=== PATIENT | male | born 1995 | race American Indian/Alaskan Native ===

== ENCOUNTER 2020-06-02 12:50 | Emergency (ER) | payer SELFPAY ==
[2020-06-02 14:32] LABS: Basophils # (Auto) 0.1 K/mm3 (0.0-0.1); Basophils % (Auto) 0.4 % (0.0-1.8); Hematocrit 46.5 % (35.5-45.6); Hemoglobin 15.7 gm/dl (11.8-15.2); Lymphocytes # (Auto) 1.4 K/mm3 (1.2-5.4); Lymphocytes % (Auto) 7.1 % (13.4-35.0); Mean Corpuscular HGB Conc 34 % (32-34); Mean Corpuscular Volume 92 fl (84-94); Monocytes # (Auto) 1.4 K/mm3 (0.0-0.8); Monocytes % (Auto) 7.2 % (0.0-7.3); Platelet Count 295 K/mm3 (140-440); Red Blood Count 5.05 M/mm3 (3.65-5.03); Red Cell Distribution Width 14.5 % (13.2-15.2)
[2020-06-02] MEDS ORDERED: SODIUM CHLORIDE 0.9% 500 ML 500 ML IV ONE (14:44)
[2020-06-02 14:51] LABS: BUN/Creatinine Ratio 8; Blood Urea Nitrogen 8 mg/dL (9-20); Calcium 10.2 mg/dL (8.4-10.2); Hemolysis Index 3
--- NOTE | 2020-06-02 15:37 | XRay Report ---
CHEST 2 VIEWS INDICATION / CLINICAL INFORMATION: Possible sepsis. COMPARISON: None available. FINDINGS: SUPPORT DEVICES: None. HEART / MEDIASTINUM: The heart size and pulmonary vasculature are normal. LUNGS / PLEURA: No significant pulmonary or pleural abnormality. No pneumothorax. ADDITIONAL FINDINGS: No acute osseous abnormality is seen. IMPRESSION: No acute findings. There is no evidence of pneumonia. Signer Name: Spencer Martinez MD Signed: 06/02/2020 3:33 PM Workstation Name: [id number]
[2020-06-02 15:39] LABS: INR 1.02 (0.87-1.13)
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
[2020-06-02] MEDS ORDERED: ZIPRASIDONE MESYLATE 20 MG VIAL IM ONE (16:51)
[2020-06-02 16:57] LABS: Bilirubin,Direct 0.4 mg/dL (0-0.2)
[2020-06-02 17:23] LABS: Amphetamine Screen,Urine PRESUMPTIVE POSITIVE; Benzodiazepines Screen,Urine PRESUMPTIVE NEGATIVE; Cannabinoid Screen,Urine PRESUMPTIVE POSITIVE; Cocaine Screen,Urine PRESUMPTIVE POSITIVE; Methadone Screen,Urine PRESUMPTIVE NEGATIVE; Opiate Screen,Urine PRESUMPTIVE NEGATIVE
[2020-06-02 17:36] LABS: Bilirubin,Urine NEG (Negative); Blood,Urine NEG (Negative); Color,Urine Amber (Yellow); Mucus,Urine 2+ /HPF; WBC,Urine < 1.0 /HPF (0.0-6.0)
[2020-06-02] MEDS ORDERED: SODIUM CHLORIDE 0.9% 1000 ML 2,000 ML IV ONE (17:43)
[2020-06-02 17:58] LABS: Bilirubin,Urine NEG (Negative); Blood,Urine NEG (Negative); Color,Urine Amber (Yellow); Mucus,Urine 2+ /HPF
[2020-06-02] MEDS ORDERED: SODIUM CHLORIDE 0.9% 1000 ML 1,000 ML IV ONE ×3 (18:58→18:59)
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
[2020-06-03] MEDS ORDERED: SODIUM CHLORIDE 0.9% 1000 ML 1,000 ML IV ONE ×2 (12:52)
[2020-06-03] MEDS ORDERED: ACETAMINOPHEN 500 MG TAB ONE (15:31)
[2020-06-03] MEDS ORDERED: ACETAMINOPHEN 500 MG TAB PO ONE (15:33)
--- NOTE | 2020-06-04 11:29 | Progress Note ---
Subjective - Reason for Consult Consult date: 06/04/20 Reason for consult: psychosis - Chief Complaint Chief complaint: During my interview with the patient he is a/o x 3. His behavior is odd. He is walking hunched over and shakes as he starts sitting down. He is laughing and smiling inappropriately. When asked how he was feeling he says, "supertastic and all." He says "I like to make up my words." He says "that means I feel wonderful." The patient denies SI/HI, stating "I don't want to do that." He then laughs out loud. When asked about hallucinations, the patient begins to laugh. REVIEW OF SYSTEMS Constitutional: Negative for weight loss ENT: Negative for stridor Respiratory: Negative for cough or hemoptysis All other systems reviewed and are negative MENTAL STATUS EXAMINATION General Appearance and Behavior: Age appropriate, fair hygiene, wearing appropriate clothes, lying in bed, poor eye contact, odd, smiles inappropriately Cooperation: Participating Psychomotor Behavior: unremarkable and within normal limits Mood: "supertastic, wonderful" Affect and affective range: smiles and laughs inappropriately Thought Process: Illogical Thought Content: possible hallucinations Speech: Normal volume, Regular rate and rhythm, Intellectual Functioning: Average Suicidal Ideation: Denies SI Homicidal Ideation: Denies HI Delusions: None elicited Impulse Control: Impaired Insight and Judgment: Limited insight and judgment Memory: Limited Orientation: Alert, oriented Assessment and Plan (1) Psychoactive substance abuse (2) Substance Induced Mood Disorder (3) Schizoaffective disorder Current Visit: Yes Status: Acute Treatment Plan Need inaptient for medication management and stabilization due to thought disorganization, concern behaviors as reported by sister warrants acute inpatient management but would only recommend inpatient when medically cleared due to labs MEDICATIONS: Risks, benefits and alternatives of medications discussed with the patient, questions answered and consent obtained from patient. PSYCHOTHERAPY: Supportive psychotherapy provided MEDICAL: Per primary team DELIRIUM PRECAUTIONS: Please re-orient patient frequently, keep lights on during the day, and minimize benzodiazepines and opiates as these medications could worsen patient's confusion. 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 Please contact with any questions and/or concerns. Mental Status Exam - Vital signs Last Vital Signs Temp 98.7 F 06/04/20 08:58 Pulse 63 06/04/20 08:58 Resp 18 06/04/20 08:58 BP 120/60 06/04/20 08:58 Pulse Ox 99 06/04/20 08:58
[2020-06-04 15:09] LABS: Basophils # (Auto) 0.1 K/mm3 (0.0-0.1); Basophils % (Auto) 0.4 % (0.0-1.8); Eosinophils # (Auto) 0.2 K/mm3 (0.0-0.4); Eosinophils % (Auto) 0.9 % (0.0-4.3); Hematocrit 42.9 % (35.5-45.6); Hemoglobin 14.1 gm/dl (11.8-15.2); Lymphocytes # (Auto) 1.4 K/mm3 (1.2-5.4); Lymphocytes % (Auto) 7.7 % (13.4-35.0); Mean Corpuscular HGB Conc 33 % (32-34); Mean Corpuscular Volume 92 fl (84-94); Monocytes # (Auto) 0.9 K/mm3 (0.0-0.8); Monocytes % (Auto) 5.3 % (0.0-7.3); Platelet Count 264 K/mm3 (140-440); Red Blood Count 4.64 M/mm3 (3.65-5.03); Red Cell Distribution Width 14.4 % (13.2-15.2)
[2020-06-04 15:23] LABS: BUN/Creatinine Ratio 10; Blood Urea Nitrogen 8 mg/dL (9-20); Hemolysis Index 6
[2020-06-04] MEDS ORDERED: ACETAMINOPHEN 325 MG TAB PO ONE (17:21)
--- NOTE | 2020-06-05 09:50 | Progress Note ---
Subjective - Reason for Consult Consult date: 06/05/20 Reason for consult: psychosis - Chief Complaint Chief complaint: The patient's medical record was reviewed and the patient's progress was discussed with the nursing staff. The nurse note states the patient is talking to the television, and is sensitive to outside stimuli; no aggression noted. During my interview with the patient he is a/o x 3. He is smiling and laughing inappropriately. He says his mood is "alright." When asking the patient was he hallucinating, he laughs out loud then stares at me. He then nods his head "yes." He would not tell me what the hallucinations were. He denies SI/HI REVIEW OF SYSTEMS Constitutional: Negative for weight loss ENT: Negative for stridor Respiratory: Negative for cough or hemoptysis All other systems reviewed and are negative MENTAL STATUS EXAMINATION General Appearance and Behavior: Age appropriate, fair hygiene, wearing appropriate clothes, fair eye contact, odd, smiles and laughs inappropriately Cooperation: Participating Psychomotor Behavior: unremarkable and within normal limits Mood: "alright" Affect and affective range: smiles and laughs inappropriately Thought Process: Illogical Thought Content: Hallucinations Speech: Normal volume, Regular rate and rhythm, Intellectual Functioning: Average Suicidal Ideation: Denies SI Homicidal Ideation: Denies HI Hallucinations: Auditory Delusions: None elicited Impulse Control: Impaired Insight and Judgment: Limited insight and judgment Memory: Limited Orientation: Alert, oriented Assessment and Plan (1) Psychoactive substance abuse (2) Substance Induced Mood Disorder (3) Schizoaffective disorder Current Visit: Yes Status: Acute Treatment Plan MEDICATIONS: Risperidone 0.25mg po BID Depakote DR 125mg po BID Trazodone 50mg po qhs Risks, benefits and alternatives of medications discussed with the patient, questions answered and consent obtained from patient. PSYCHOTHERAPY: Supportive psychotherapy provided MEDICAL: Per primary team DELIRIUM PRECAUTIONS: Please re-orient patient frequently, keep lights on during the day, and minimize benzodiazepines and opiates as these medications could worsen patient's confusion. DYNAMICS AX DEVELOPER: DISPOSITION: Recommend acute inpatient psychiatric hospitalization LEGAL STATUS: 1013 FOLLOW-UP: Will follow Thank you for the consult. Please contact with any questions and/or concerns. Mental Status Exam - Vital signs Last Vital Signs Temp 98.4 F 06/05/20 01:00 Pulse 76 06/05/20 01:00 Resp 20 06/05/20 01:00 BP 128/69 06/05/20 01:00 Pulse Ox 98 06/05/20 01:00
[2020-06-05] MEDS ORDERED: ACETAMINOPHEN 325 MG TAB PO ONE (10:50)
[2020-06-05] MEDS ORDERED: ACETAMINOPHEN 325 MG TAB ONE (10:57)
[2020-06-05] MEDS: risperiDONE 0.25 MG TAB PO SCH ×2 (11:00→21:53)
[2020-06-05] MEDS: DIVALPROEX DR 125 MG TAB PO SCH ×2 (11:00→21:51)
[2020-06-05 18:41] LABS: Hemoglobin 14.2 gm/dl (11.8-15.2); Mean Corpuscular HGB Conc 33 % (32-34); Mean Corpuscular Volume 94 fl (84-94); Platelet Count 281 K/mm3 (140-440); Red Blood Count 4.59 M/mm3 (3.65-5.03); Red Cell Distribution Width 14.2 % (13.2-15.2)
[2020-06-05 19:00] LABS: BUN/Creatinine Ratio 14; Blood Urea Nitrogen 14 mg/dL (9-20); Calcium 9.5 mg/dL (8.4-10.2); Hemolysis Index 8
[2020-06-05] MEDS: traZODone 50 MG TAB PO SCH (21:52)
[2020-06-06] MEDS: risperiDONE 0.25 MG TAB PO SCH ×2 (09:47→21:40)
[2020-06-06] MEDS: DIVALPROEX DR 125 MG TAB PO SCH (09:47)
--- NOTE | 2020-06-06 10:52 | Progress Note ---
Subjective - Reason for Consult Consult date: 06/06/20 Reason for consult: psychosis - Chief Complaint Chief complaint: The patient's medical record was reviewed and the patient's progress was discussed with the nursing staff. During my interview with the patient he is a/o x 3. He is smiling and laughing. He says "I'm happy." He is asking when is he "going to a facility." He verbalizes hallucinations "at times" when asked. He denies SI/HI. Spoke with the sister, she says the patient has almost from drug overdose. She says he talks and laughs to people who are not around. She says she's afraid for the patient to come back home at this time. REVIEW OF SYSTEMS Constitutional: Negative for weight loss ENT: Negative for stridor Respiratory: Negative for cough or hemoptysis All other systems reviewed and are negative MENTAL STATUS EXAMINATION General Appearance and Behavior: Age appropriate, fair hygiene, wearing appropriate clothes, fair eye contact, odd, smiles and laughs inappropriately Cooperation: Participating Psychomotor Behavior: unremarkable and within normal limits Mood: "happy" Affect and affective range: smiles and laughs inappropriately Thought Process: Illogical Thought Content: Hallucinations Speech: Normal volume, Regular rate and rhythm, Intellectual Functioning: Average Suicidal Ideation: Denies SI Homicidal Ideation: Denies HI Hallucinations: Auditory Delusions: None elicited Impulse Control: Impaired Insight and Judgment: Limited insight and judgment Memory: Limited Orientation: Alert, oriented Assessment and Plan (1) Psychoactive substance abuse (2) Substance Induced Mood Disorder (3) Schizoaffective disorder Current Visit: Yes Status: Acute Treatment Plan MEDICATIONS: Increased Risperidone 0.5mg po BID Increaed Depakote DR 250mg po BID Risks, benefits and alternatives of medications discussed with the patient, questions answered and consent obtained from patient. PSYCHOTHERAPY: Supportive psychotherapy provided MEDICAL: Per primary team DELIRIUM PRECAUTIONS: Please re-orient patient frequently, keep lights on during the day, and minimize benzodiazepines and opiates as these medications could worsen patient's confusion. HADOOP ARCHITECT: DISPOSITION: Recommend acute inpatient psychiatric hospitalization LEGAL STATUS: 1013 FOLLOW-UP: Will follow Thank you for the consult. Please contact with any questions and/or concerns. Mental Status Exam - Vital signs Last Vital Signs Temp 97.8 F 06/06/20 07:41 Pulse 62 06/06/20 07:41 Resp 16 06/06/20 07:41 BP 121/71 06/06/20 07:41 Pulse Ox 98 06/06/20 07:41
[2020-06-06] MEDS: traZODone 50 MG TAB PO SCH (21:38)
[2020-06-06] MEDS: DIVALPROEX DR 250 MG TAB PO SCH (21:39)
[2020-06-07 08:43] VITALS: BP 139/73
[2020-06-07] MEDS: risperiDONE 0.25 MG TAB PO SCH (10:30)
[2020-06-07] MEDS: DIVALPROEX DR 250 MG TAB PO SCH (10:30)
--- NOTE | 2020-06-07 11:17 | Progress Note ---
Subjective - Reason for Consult Consult date: 06/07/20 Reason for consult: bizarre behavior - Chief Complaint Chief complaint: The patient's medical record was reviewed and the patient's progress was discussed with the nursing staff. The nurse caring for the patient states he's been calm, cooperative and has no aggressive behavior. She also says he has denies any SI/HI or A/V hallucinations. During my interview with the patient, he is a/o x 3. He is lucid. He is conversational. The patient states "I feel much better." He says "my thoughts feel clear today." He denies SI/HI, stating "naw, I'm good. I'm ready to go home now." He says "I talked with my sister. I'm gone go to rehab." The patient also denies hallucinations of any kind. REVIEW OF SYSTEMS Constitutional: Negative for weight loss ENT: Negative for stridor Respiratory: Negative for cough or hemoptysis All other systems reviewed and are negative MENTAL STATUS EXAMINATION General Appearance and Behavior: Age appropriate, fair hygiene, wearing appropriate clothes, good eye contact, calm and cooperative, lucid Cooperation: Participating Psychomotor Behavior: unremarkable and within normal limits Mood: "much better" Affect and affective range: Euthymic Thought Process: logical Thought Content: optimistic Speech: Normal volume, Regular rate and rhythm, Intellectual Functioning: Average Suicidal Ideation: Denies SI Homicidal Ideation: Denies HI Hallucinations: Denies Delusions: None elicited Impulse Control: Impaired Insight and Judgment: Limited insight and judgment Memory: Limited Orientation: Alert, oriented Assessment and Plan (1) Psychoactive substance abuse (2) Substance Induced Mood Disorder (3) Schizoaffective disorder Current Visit: Yes Status: Acute Treatment Plan D/C 1013 MEDICATIONS: Risperidone 0.5mg po BID Depakote DR 250mg po BID Trazone 50mg po qhs Risks, benefits and alternatives of medications discussed with the patient, questions answered and consent obtained from patient. PSYCHOTHERAPY: Supportive psychotherapy provided MEDICAL: Per primary team DELIRIUM PRECAUTIONS: Please re-orient patient frequently, keep lights on during the day, and minimize benzodiazepines and opiates as these medications could worsen patient's confusion. REGULATORY TECHNICIAN: Defer to medical DISPOSITION: Do Recommend acute inpatient psychiatric hospitalization. The patient may discharge home once medically clear. He understands that if any self harm thoughts or behaviors or any fear of endangerment are to arise he is to seek immediate assistance including but not limited to the crisis hotline, 911, ER. The dowel inspector to further discuss safety plan The dowel inspector is to give the patient resources for outpatient psychiatry, cognitive behavioral therapy, drug rehabilitation The patient is to abstain from all illicit drug use Follow up with outpatient psych and primary in 7 to 14 days upon discharge. Will sign off. Thank you for the consult. Please contact with any questions and/or concerns. Mental Status Exam - Vital signs Last Vital Signs Temp 98.4 F 06/07/20 08:42 Pulse 69 06/07/20 08:42 Resp 20 06/07/20 08:42 BP 139/73 06/07/20 08:42 Pulse Ox 96 06/07/20 08:42
--- NOTE | 2020-06-07 12:34 | Event Note ---
Date: 06/07/20 The patient was evaluated in the emergency department for symptoms described in the history of present illness. He/she was evaluated in the context of the global COVID-19 pandemic, which necessitated consideration that the patient might be at risk for infection with the virus that causes COVID-19. Institutional protocols and algorithms that pertain to the evaluation of patients at risk for COVID-19 are in a state of rapid change based on information released by regulatory bodies including the CDC and federal and state organizations. These policies and algorithms were followed during the patient's care in the emergency department. Please note that these policies, procedures and recommendations changed on a rapid basis. Patient has been observed in this emergency room for days. Laboratory studies, vital signs, and culture results are reviewed and appreciated. Initial laboratory abnormality is likely stress reaction, likely secondary to sympathomimetic consumption/ingestion. Patient has been cleared by the psychiatry team for discharge. He does not appear to have an acute medical condition at this time which would require hospitalization or admission at this time. He has endorsed to the psychiatry team a desire to discontinue recreational drug consumption. Vital Signs 06/02/20 06/02/20 06/02/20 13:28 17:38 17:44 Temperature 98.0 F 98.4 F Pulse Rate 111 H 71 Respiratory 16 18 18 Rate Blood Pressure Blood Pressure 134/94 125/77 [Right] O2 Sat by Pulse 97 100 Oximetry 06/02/20 06/02/20 06/03/20 19:12 19:16 02:04 Temperature 98.4 F 98.4 F 97.6 F Pulse Rate 74 103 H 56 L Respiratory 18 18 20 Rate Blood Pressure 126/60 107/71 Blood Pressure [Right] O2 Sat by Pulse 100 98 100 Oximetry 06/03/20 06/03/20 06/03/20 08:00 14:30 19:40 Temperature 97.7 F 98.7 F Pulse Rate 62 69 Respiratory 18 18 18 Rate Blood Pressure Blood Pressure 100/61 119/76 [Right] O2 Sat by Pulse 100 100 Oximetry 06/03/20 06/04/20 06/04/20 20:00 00:55 08:58 Temperature 98.2 F 98.1 F 98.7 F Pulse Rate 58 L 60 63 Respiratory 18 18 18 Rate Blood Pressure Blood Pressure 124/54 120/60 120/60 [Right] O2 Sat by Pulse 99 98 99 Oximetry 06/04/20 06/04/20 06/04/20 17:42 19:30 20:00 Temperature 98.2 F Pulse Rate 65 Respiratory 16 16 18 Rate Blood Pressure Blood Pressure 111/71 [Right] O2 Sat by Pulse 98 98 Oximetry 06/05/20 06/05/20 06/05/20 01:00 07:30 11:03 Temperature 98.4 F 98.1 F Pulse Rate 76 63 Respiratory 20 19 16 Rate Blood Pressure Blood Pressure 128/69 120/84 [Right] O2 Sat by Pulse 98 100 Oximetry 06/05/20 06/05/20 06/06/20 12:03 20:20 02:06 Temperature 98.5 F 97.8 F Pulse Rate 53 L 66 Respiratory 16 16 16 Rate Blood Pressure Blood Pressure 120/78 119/87 [Right] O2 Sat by Pulse 98 100 Oximetry 06/06/20 06/06/20 06/06/20 07:41 13:18 20:05 Temperature 97.8 F 98.9 F 97.7 F Pulse Rate 62 64 64 Respiratory 16 16 16 Rate Blood Pressure 121/71 116/73 Blood Pressure 128/71 [Right] O2 Sat by Pulse 98 99 99 Oximetry 06/07/20 06/07/20 02:06 08:42 Temperature 97.5 F L 98.4 F Pulse Rate 51 L 69 Respiratory 16 20 Rate Blood Pressure Blood Pressure 102/46 139/73 [Right] O2 Sat by Pulse 97 96 Oximetry Lab Results 06/02/20 06/02/20 06/02/20 Range/Units 13:48 14:07 14:07 WBC 19.6 H (4.5-11.0) K/mm3 RBC 5.05 H (3.65-5.03) M/mm3 Hgb 15.7 H (11.8-15.2) gm/dl Hct 46.5 H (35.5-45.6) % MCV 92 (84-94) fl MCH 31 (28-32) pg MCHC 34 (32-34) % RDW 14.5 (13.2-15.2) % Plt Count 295 (140-440) K/mm3 Lymph % (Auto) 7.1 L (13.4-35.0) % [place] % (Auto) 7.2 (0.0-7.3) % Eos % (Auto) 0.0 (0.0-4.3) % Baso % (Auto) 0.4 (0.0-1.8) % Lymph # (Auto) 1.4 (1.2-5.4) K/mm3 [place] # (Auto) 1.4 H (0.0-0.8) K/mm3 Eos # (Auto) 0.0 (0.0-0.4) K/mm3 Baso # (Auto) 0.1 (0.0-0.1) K/mm3 Seg Neutrophils % 85.3 H (40.0-70.0) % Seg Neutrophils # 16.7 H (1.8-7.7) K/mm3 PT (12.2-14.9) Sec. INR (0.87-1.13) VBG pH (7.320-7.420) Sodium 140 (137-145) mmol/L Potassium 3.4 L (3.6-5.0) mmol/L Chloride 98.2 (98-107) mmol/L Carbon Dioxide 27 (22-30) mmol/L Anion Gap 18 mmol/L BUN 8 L (9-20) mg/dL Creatinine 1.0 (0.8-1.3) mg/dL Estimated GFR > 60 ml/min BUN/Creatinine Ratio 8 % Glucose 88 (75-100) mg/dL POC Glucose 104 (70-105) mg/dL Lactic Acid (0.7-2.0) mmol/L Calcium 10.2 (8.4-10.2) mg/dL Magnesium (1.7-2.3) mg/dL Total Bilirubin (0.1-1.2) mg/dL Direct Bilirubin (0-0.2) mg/dL Indirect Bilirubin mg/dL AST (5-40) units/L ALT (7-56) units/L Alkaline Phosphatase (35-129) units/L Total Creatine Kinase (55-170) units/L Troponin T (0.00-0.029) ng/mL Total Protein (6.3-8.2) g/dL Albumin (3.9-5) g/dL Albumin/Globulin Ratio % Urine Color (Yellow) Urine Turbidity (Clear) Urine pH (5.0-7.0) Ur Specific [place] (1.003-1.030) Urine Protein (Negative) mg/dL Urine Glucose (UA) (Negative) mg/dL Urine Ketones (Negative) mg/dL Urine Blood (Negative) Urine Nitrite (Negative) Urine Bilirubin (Negative) Urine Urobilinogen (<2.0) mg/dL Ur Leukocyte Esterase (Negative) Urine WBC (Auto) (0.0-6.0) /HPF Urine RBC (Auto) (0.0-6.0) /HPF U Epithel Cells (Auto) (0-13.0) /HPF Urine Mucus /HPF Salicylates (2.8-20.0) mg/dL Urine Opiates Screen Urine Methadone Screen Acetaminophen (10.0-30.0) ug/mL Ur Barbiturates Screen Ur Phencyclidine Scrn Ur Amphetamines Screen U Benzodiazepines Scrn Urine Cocaine Screen U Marijuana (THC) Screen Drugs of Abuse Note Plasma/Serum Alcohol (0-0.07) % 06/02/20 06/02/20 06/02/20 Range/Units 14:51 14:51 14:51 WBC (4.5-11.0) K/mm3 RBC (3.65-5.03) M/mm3 Hgb (11.8-15.2) gm/dl Hct (35.5-45.6) % MCV (84-94) fl MCH (28-32) pg MCHC (32-34) % RDW (13.2-15.2) % Plt Count (140-440) K/mm3 Lymph % (Auto) (13.4-35.0) % [place] % (Auto) (0.0-7.3) % Eos % (Auto) (0.0-4.3) % Baso % (Auto) (0.0-1.8) % Lymph # (Auto) (1.2-5.4) K/mm3 [place] # (Auto) (0.0-0.8) K/mm3 Eos # (Auto) (0.0-0.4) K/mm3 Baso # (Auto) (0.0-0.1) K/mm3 Seg Neutrophils % (40.0-70.0) % Seg Neutrophils # (1.8-7.7) K/mm3 PT 13.6 (12.2-14.9) Sec. INR 1.02 (0.87-1.13) VBG pH 7.421 H (7.320-7.420) Sodium (137-145) mmol/L Potassium (3.6-5.0) mmol/L Chloride (98-107) mmol/L Carbon Dioxide (22-30) mmol/L Anion Gap mmol/L BUN (9-20) mg/dL Creatinine (0.8-1.3) mg/dL Estimated GFR ml/min BUN/Creatinine Ratio % Glucose (75-100) mg/dL POC Glucose (70-105) mg/dL Lactic Acid 1.00 (0.7-2.0) mmol/L Calcium (8.4-10.2) mg/dL Magnesium (1.7-2.3) mg/dL Total Bilirubin (0.1-1.2) mg/dL Direct Bilirubin (0-0.2) mg/dL Indirect Bilirubin mg/dL AST (5-40) units/L ALT (7-56) units/L Alkaline Phosphatase (35-129) units/L Total Creatine Kinase (55-170) units/L Troponin T (0.00-0.029) ng/mL Total Protein (6.3-8.2) g/dL Albumin (3.9-5) g/dL Albumin/Globulin Ratio % Urine Color (Yellow) Urine Turbidity (Clear) Urine pH (5.0-7.0) Ur Specific [place] (1.003-1.030) Urine Protein (Negative) mg/dL Urine Glucose (UA) (Negative) mg/dL Urine Ketones (Negative) mg/dL Urine Blood (Negative) Urine Nitrite (Negative) Urine Bilirubin (Negative) Urine Urobilinogen (<2.0) mg/dL Ur Leukocyte Esterase (Negative) Urine WBC (Auto) (0.0-6.0) /HPF Urine RBC (Auto) (0.0-6.0) /HPF U Epithel Cells (Auto) (0-13.0) /HPF Urine Mucus /HPF Salicylates (2.8-20.0) mg/dL Urine Opiates Screen Urine Methadone Screen Acetaminophen (10.0-30.0) ug/mL Ur Barbiturates Screen Ur Phencyclidine Scrn Ur Amphetamines Screen U Benzodiazepines Scrn Urine Cocaine Screen U Marijuana (THC) Screen Drugs of Abuse Note Plasma/Serum Alcohol (0-0.07) % 06/02/20 06/02/20 06/02/20 Range/Units 16:24 16:24 16:24 WBC (4.5-11.0) K/mm3 RBC (3.65-5.03) M/mm3 Hgb (11.8-15.2) gm/dl Hct (35.5-45.6) % MCV (84-94) fl MCH (28-32) pg MCHC (32-34) % RDW (13.2-15.2) % Plt Count (140-440) K/mm3 Lymph % (Auto) (13.4-35.0) % [place] % (Auto) (0.0-7.3) % Eos % (Auto) (0.0-4.3) % Baso % (Auto) (0.0-1.8) % Lymph # (Auto) (1.2-5.4) K/mm3 [place] # (Auto) (0.0-0.8) K/mm3 Eos # (Auto) (0.0-0.4) K/mm3 Baso # (Auto) (0.0-0.1) K/mm3 Seg Neutrophils % (40.0-70.0) % Seg Neutrophils # (1.8-7.7) K/mm3 PT (12.2-14.9) Sec. INR (0.87-1.13) VBG pH (7.320-7.420) Sodium (137-145) mmol/L Potassium (3.6-5.0) mmol/L Chloride (98-107) mmol/L Carbon Dioxide (22-30) mmol/L Anion Gap mmol/L BUN (9-20) mg/dL Creatinine (0.8-1.3) mg/dL Estimated GFR ml/min BUN/Creatinine Ratio % Glucose (75-100) mg/dL POC Glucose (70-105) mg/dL Lactic Acid (0.7-2.0) mmol/L Calcium (8.4-10.2) mg/dL Magnesium (1.7-2.3) mg/dL Total Bilirubin (0.1-1.2) mg/dL Direct Bilirubin (0-0.2) mg/dL Indirect Bilirubin mg/dL AST (5-40) units/L ALT (7-56) units/L Alkaline Phosphatase (35-129) units/L Total Creatine Kinase (55-170) units/L Troponin T (0.00-0.029) ng/mL Total Protein (6.3-8.2) g/dL Albumin (3.9-5) g/dL Albumin/Globulin Ratio % Urine Color (Yellow) Urine Turbidity (Clear) Urine pH (5.0-7.0) Ur Specific [place] (1.003-1.030) Urine Protein (Negative) mg/dL Urine Glucose (UA) (Negative) mg/dL Urine Ketones (Negative) mg/dL Urine Blood (Negative) Urine Nitrite (Negative) Urine Bilirubin (Negative) Urine Urobilinogen (<2.0) mg/dL Ur Leukocyte Esterase (Negative) Urine WBC (Auto) (0.0-6.0) /HPF Urine RBC (Auto) (0.0-6.0) /HPF U Epithel Cells (Auto) (0-13.0) /HPF Urine Mucus /HPF Salicylates < 0.3 L (2.8-20.0) mg/dL Urine Opiates Screen Urine Methadone Screen Acetaminophen 5.0 L (10.0-30.0) ug/mL Ur Barbiturates Screen Ur Phencyclidine Scrn Ur Amphetamines Screen U Benzodiazepines Scrn Urine Cocaine Screen U Marijuana (THC) Screen Drugs of Abuse Note Plasma/Serum Alcohol < 0.01 (0-0.07) % 06/02/20 06/02/20 06/02/20 Range/Units 16:24 16:57 17:40 WBC (4.5-11.0) K/mm3 RBC (3.65-5.03) M/mm3 Hgb (11.8-15.2) gm/dl Hct (35.5-45.6) % MCV (84-94) fl MCH (28-32) pg MCHC (32-34) % RDW (13.2-15.2) % Plt Count (140-440) K/mm3 Lymph % (Auto) (13.4-35.0) % [place] % (Auto) (0.0-7.3) % Eos % (Auto) (0.0-4.3) % Baso % (Auto) (0.0-1.8) % Lymph # (Auto) (1.2-5.4) K/mm3 [place] # (Auto) (0.0-0.8) K/mm3 Eos # (Auto) (0.0-0.4) K/mm3 Baso # (Auto) (0.0-0.1) K/mm3 Seg Neutrophils % (40.0-70.0) % Seg Neutrophils # (1.8-7.7) K/mm3 PT (12.2-14.9) Sec. INR (0.87-1.13) VBG pH (7.320-7.420) Sodium (137-145) mmol/L Potassium (3.6-5.0) mmol/L Chloride (98-107) mmol/L Carbon Dioxide (22-30) mmol/L Anion Gap mmol/L BUN (9-20) mg/dL Creatinine (0.8-1.3) mg/dL Estimated GFR ml/min BUN/Creatinine Ratio % Glucose (75-100) mg/dL POC Glucose (70-105) mg/dL Lactic Acid (0.7-2.0) mmol/L Calcium (8.4-10.2) mg/dL Magnesium (1.7-2.3) mg/dL Total Bilirubin 1.50 H (0.1-1.2) mg/dL Direct Bilirubin 0.4 H (0-0.2) mg/dL Indirect Bilirubin 1.1 mg/dL AST 129 H (5-40) units/L ALT 37 (7-56) units/L Alkaline Phosphatase 89 (35-129) units/L Total Creatine Kinase 8296 H (55-170) units/L Troponin T < 0.010 (0.00-0.029) ng/mL Total Protein 7.7 (6.3-8.2) g/dL Albumin 5.0 (3.9-5) g/dL Albumin/Globulin Ratio 1.9 % Urine Color [place] (Yellow) Urine Turbidity Clear (Clear) Urine pH 6.0 (5.0-7.0) Ur Specific [place] 1.035 H (1.003-1.030) Urine Protein 100 mg/dl (Negative) mg/dL Urine Glucose (UA) Neg (Negative) mg/dL Urine Ketones 20 (Negative) mg/dL Urine Blood Neg (Negative) Urine Nitrite Neg (Negative) Urine Bilirubin Neg (Negative) Urine Urobilinogen 2.0 (<2.0) mg/dL Ur Leukocyte Esterase Neg (Negative) Urine WBC (Auto) 1.0 (0.0-6.0) /HPF Urine RBC (Auto) 2.0 (0.0-6.0) /HPF U Epithel Cells (Auto) < 1.0 (0-13.0) /HPF Urine Mucus 2+ /HPF Salicylates (2.8-20.0) mg/dL Urine Opiates Screen Urine Methadone Screen Acetaminophen (10.0-30.0) ug/mL Ur Barbiturates Screen Ur Phencyclidine Scrn Ur Amphetamines Screen U Benzodiazepines Scrn Urine Cocaine Screen U Marijuana (THC) Screen Drugs of Abuse Note Plasma/Serum Alcohol (0-0.07) % 06/02/20 06/02/20 06/03/20 Range/Units Unknown Unknown 10:31 WBC (4.5-11.0) K/mm3 RBC (3.65-5.03) M/mm3 Hgb (11.8-15.2) gm/dl Hct (35.5-45.6) % MCV (84-94) fl MCH (28-32) pg MCHC (32-34) % RDW (13.2-15.2) % Plt Count (140-440) K/mm3 Lymph % (Auto) (13.4-35.0) % [place] % (Auto) (0.0-7.3) % Eos % (Auto) (0.0-4.3) % Baso % (Auto) (0.0-1.8) % Lymph # (Auto) (1.2-5.4) K/mm3 [place] # (Auto) (0.0-0.8) K/mm3 Eos # (Auto) (0.0-0.4) K/mm3 Baso # (Auto) (0.0-0.1) K/mm3 Seg Neutrophils % (40.0-70.0) % Seg Neutrophils # (1.8-7.7) K/mm3 PT (12.2-14.9) Sec. INR (0.87-1.13) VBG pH (7.320-7.420) Sodium (137-145) mmol/L Potassium (3.6-5.0) mmol/L Chloride (98-107) mmol/L Carbon Dioxide (22-30) mmol/L Anion Gap mmol/L BUN (9-20) mg/dL Creatinine (0.8-1.3) mg/dL Estimated GFR ml/min BUN/Creatinine Ratio % Glucose (75-100) mg/dL POC Glucose (70-105) mg/dL Lactic Acid (0.7-2.0) mmol/L Calcium (8.4-10.2) mg/dL Magnesium (1.7-2.3) mg/dL Total Bilirubin (0.1-1.2) mg/dL Direct Bilirubin (0-0.2) mg/dL Indirect Bilirubin mg/dL AST (5-40) units/L ALT (7-56) units/L Alkaline Phosphatase (35-129) units/L Total Creatine Kinase 4742 H (55-170) units/L Troponin T (0.00-0.029) ng/mL Total Protein (6.3-8.2) g/dL Albumin (3.9-5) g/dL Albumin/Globulin Ratio % Urine Color [place] (Yellow) Urine Turbidity Clear (Clear) Urine pH 6.0 (5.0-7.0) Ur Specific [place] 1.035 H (1.003-1.030) Urine Protein 100 mg/dl (Negative) mg/dL Urine Glucose (UA) Neg (Negative) mg/dL Urine Ketones 80 (Negative) mg/dL Urine Blood Neg (Negative) Urine Nitrite Neg (Negative) Urine Bilirubin Neg (Negative) Urine Urobilinogen 2.0 (<2.0) mg/dL Ur Leukocyte Esterase Neg (Negative) Urine WBC (Auto) < 1.0 (0.0-6.0) /HPF Urine RBC (Auto) 2.0 (0.0-6.0) /HPF U Epithel Cells (Auto) (0-13.0) /HPF Urine Mucus 2+ /HPF Salicylates (2.8-20.0) mg/dL Urine Opiates Screen Presumptive negative Urine Methadone Screen Presumptive negative Acetaminophen (10.0-30.0) ug/mL Ur Barbiturates Screen Presumptive negative Ur Phencyclidine Scrn Presumptive negative Ur Amphetamines Screen Presumptive positive U Benzodiazepines Scrn Presumptive negative Urine Cocaine Screen Presumptive positive U Marijuana (THC) Screen Presumptive positive Drugs of Abuse Note Disclamer Plasma/Serum Alcohol (0-0.07) % 06/04/20 06/04/20 06/04/20 Range/Units 09:58 14:52 14:52 WBC 17.9 H (4.5-11.0) K/mm3 RBC 4.64 (3.65-5.03) M/mm3 Hgb 14.1 (11.8-15.2) gm/dl Hct 42.9 (35.5-45.6) % MCV 92 (84-94) fl MCH 30 (28-32) pg MCHC 33 (32-34) % RDW 14.4 (13.2-15.2) % Plt Count 264 (140-440) K/mm3 Lymph % (Auto) 7.7 L (13.4-35.0) % [place] % (Auto) 5.3 (0.0-7.3) % Eos % (Auto) 0.9 (0.0-4.3) % Baso % (Auto) 0.4 (0.0-1.8) % Lymph # (Auto) 1.4 (1.2-5.4) K/mm3 [place] # (Auto) 0.9 H (0.0-0.8) K/mm3 Eos # (Auto) 0.2 (0.0-0.4) K/mm3 Baso # (Auto) 0.1 (0.0-0.1) K/mm3 Seg Neutrophils % 85.7 H (40.0-70.0) % Seg Neutrophils # 15.3 H (1.8-7.7) K/mm3 PT (12.2-14.9) Sec. INR (0.87-1.13) VBG pH (7.320-7.420) Sodium 136 L (137-145) mmol/L Potassium 3.8 (3.6-5.0) mmol/L Chloride 99.3 (98-107) mmol/L Carbon Dioxide 24 (22-30) mmol/L Anion Gap 17 mmol/L BUN 8 L (9-20) mg/dL Creatinine 0.8 (0.8-1.3) mg/dL Estimated GFR > 60 ml/min BUN/Creatinine Ratio 10 % Glucose 84 (75-100) mg/dL POC Glucose (70-105) mg/dL Lactic Acid (0.7-2.0) mmol/L Calcium 9.0 (8.4-10.2) mg/dL Magnesium (1.7-2.3) mg/dL Total Bilirubin (0.1-1.2) mg/dL Direct Bilirubin (0-0.2) mg/dL Indirect Bilirubin mg/dL AST (5-40) units/L ALT (7-56) units/L Alkaline Phosphatase (35-129) units/L Total Creatine Kinase 3540 H (55-170) units/L Troponin T (0.00-0.029) ng/mL Total Protein (6.3-8.2) g/dL Albumin (3.9-5) g/dL Albumin/Globulin Ratio % Urine Color (Yellow) Urine Turbidity (Clear) Urine pH (5.0-7.0) Ur Specific [place] (1.003-1.030) Urine Protein (Negative) mg/dL Urine Glucose (UA) (Negative) mg/dL Urine Ketones (Negative) mg/dL Urine Blood (Negative) Urine Nitrite (Negative) Urine Bilirubin (Negative) Urine Urobilinogen (<2.0) mg/dL Ur Leukocyte Esterase (Negative) Urine WBC (Auto) (0.0-6.0) /HPF Urine RBC (Auto) (0.0-6.0) /HPF U Epithel Cells (Auto) (0-13.0) /HPF Urine Mucus /HPF Salicylates (2.8-20.0) mg/dL Urine Opiates Screen Urine Methadone Screen Acetaminophen (10.0-30.0) ug/mL Ur Barbiturates Screen Ur Phencyclidine Scrn Ur Amphetamines Screen U Benzodiazepines Scrn Urine Cocaine Screen U Marijuana (THC) Screen Drugs of Abuse Note Plasma/Serum Alcohol (0-0.07) % 06/05/20 06/05/20 06/06/20 Range/Units 18:08 18:08 18:06 WBC 11.1 H (4.5-11.0) K/mm3 RBC 4.59 (3.65-5.03) M/mm3 Hgb 14.2 (11.8-15.2) gm/dl Hct 43.0 (35.5-45.6) % MCV 94 (84-94) fl MCH 31 (28-32) pg MCHC 33 (32-34) % RDW 14.2 (13.2-15.2) % Plt Count 281 (140-440) K/mm3 Lymph % (Auto) (13.4-35.0) % [place] % (Auto) (0.0-7.3) % Eos % (Auto) (0.0-4.3) % Baso % (Auto) (0.0-1.8) % Lymph # (Auto) (1.2-5.4) K/mm3 [place] # (Auto) (0.0-0.8) K/mm3 Eos # (Auto) (0.0-0.4) K/mm3 Baso # (Auto) (0.0-0.1) K/mm3 Seg Neutrophils % (40.0-70.0) % Seg Neutrophils # (1.8-7.7) K/mm3 PT (12.2-14.9) Sec. INR (0.87-1.13) VBG pH (7.320-7.420) Sodium 140 (137-145) mmol/L Potassium 3.8 (3.6-5.0) mmol/L Chloride 100.2 (98-107) mmol/L Carbon Dioxide 28 (22-30) mmol/L Anion Gap 16 mmol/L BUN 14 (9-20) mg/dL Creatinine 1.0 (0.8-1.3) mg/dL Estimated GFR > 60 ml/min BUN/Creatinine Ratio 14 % Glucose 82 (75-100) mg/dL POC Glucose (70-105) mg/dL Lactic Acid (0.7-2.0) mmol/L Calcium 9.5 (8.4-10.2) mg/dL Magnesium 2.00 (1.7-2.3) mg/dL Total Bilirubin (0.1-1.2) mg/dL Direct Bilirubin (0-0.2) mg/dL Indirect Bilirubin mg/dL AST (5-40) units/L ALT (7-56) units/L Alkaline Phosphatase (35-129) units/L Total Creatine Kinase 1473 H 873 H (55-170) units/L Troponin T (0.00-0.029) ng/mL Total Protein (6.3-8.2) g/dL Albumin (3.9-5) g/dL Albumin/Globulin Ratio % Urine Color (Yellow) Urine Turbidity (Clear) Urine pH (5.0-7.0) Ur Specific [place] (1.003-1.030) Urine Protein (Negative) mg/dL Urine Glucose (UA) (Negative) mg/dL Urine Ketones (Negative) mg/dL Urine Blood (Negative) Urine Nitrite (Negative) Urine Bilirubin (Negative) Urine Urobilinogen (<2.0) mg/dL Ur Leukocyte Esterase (Negative) Urine WBC (Auto) (0.0-6.0) /HPF Urine RBC (Auto) (0.0-6.0) /HPF U Epithel Cells (Auto) (0-13.0) /HPF Urine Mucus /HPF Salicylates (2.8-20.0) mg/dL Urine Opiates Screen Urine Methadone Screen Acetaminophen (10.0-30.0) ug/mL Ur Barbiturates Screen Ur Phencyclidine Scrn Ur Amphetamines Screen U Benzodiazepines Scrn Urine Cocaine Screen U Marijuana (THC) Screen Drugs of Abuse Note Plasma/Serum Alcohol (0-0.07) %
== END 2020-06-07 13:58 | disposition home or self-care (01) ==
LOC: EDBD → EEVIPCON 12:50 → ED 12:50
DX: F19.959 Other psychoactive substance use, unspecified with psychoactive substance-induced psychotic disorder, unspecified (principal); R41.82 Altered mental status, unspecified
CPT/HCPCS: 36415; 71046; 80048; 80076; 80307; 81001; 82140; 82550; 82805; 82962; 83735; 84484; 85025; 85027; 85610; 87040; 87086; 93005; 96360; 96361; 96372; 99285; J3486; J7030; J7040; U0003; 80320; G0480

== ENCOUNTER 2021-02-04 02:08 | Emergency (ER) | payer OTHER ==
[2021-02-04 07:48] VITALS: BP 124/77
--- NOTE | 2021-02-04 07:59 | Emergency Department Report ---
Chief Complaint: Dyspnea/Respdistress Stated Complaint: LIGHT HEADED/SCOTTY Time Seen by Provider: 02/04/21 07:13 - HPI History of Present Illness: 26-year-old -[place] male with a past medical history of bipolar and schizoaffective disorder presents to the emergency room stating he was short of breath for 30 minutes. Patient came in by EMS. Patient reports that he is homeless. Patient states that he feels he just needs to rest. Patient denies any fever chills no nausea no vomiting. He states he had some orange juice and it made him feel little bit better. Patient's mental health provider is Dr. Sanchez. States has been out of his Depakote for a couple months. Denies any EtOH or drug abuse. - Exam Vital Signs: Vital Signs 02/04/21 02/04/21 02/04/21 02:11 07:28 07:34 Temperature 97.9 F 98 F Pulse Rate 110 H 67 Respiratory 20 18 Rate Blood Pressure 143/98 Blood Pressure 124/77 [Left] O2 Sat by Pulse 100 100 Oximetry 02/04/21 07:35 Temperature Pulse Rate Respiratory 18 Rate Blood Pressure Blood Pressure [Left] O2 Sat by Pulse Oximetry Physical Exam: General: Awake, appropriately interactive, no acute distress. Neck: Supple. Full range of motion intact. Cardiovascular: Normal peripheral perfusion. Pulmonary: No respiratory distress. Patient is speaking normally without use of accessory muscles. Skin: No apparent rashes or lesions. Neurological: No facial asymmetry. Speech is clear. Follows commands. Patient is alert and oriented. Musculoskeletal: Full range of motion, no crepitus. No tenderness to palpate nonerythematous no edema test appreciated. Able to bear weight and ambulate without difficulty. Distal neurovascular and motor/sensory function is intact. Psych: Cooperative. Appropriate mood and affect. MSE screening note: Focused history and physical exam performed. Due to findings the following was ordered: 26-year-old -[place] male with a past medical history of bipolar and schizoaffective disorder presents to the emergency room stating he was short of breath for 30 minutes. Patient came in by EMS. Patient reports that he is homeless. Patient states that he feels he just needs to rest. Patient denies any fever chills no nausea no vomiting. He states he had some orange juice and it made him feel little bit better. Patient's mental health provider is Dr. Sanchez. States has been out of his Depakote for a couple months. Denies any EtOH or drug abuse. Patient has stable vital signs and reports that he feels much better. Patient has been here for over 4 hours being observed with no decline in his condition. Patient be discharged home to follow-up with his mental health provider and referral to [facility]. ED Disposition for MSE Clinical Impression: Schizoaffective disorder Disposition: DC- TO HOME OR SELFCARE Is pt being admited?: No Does the pt Need Aspirin: No Condition: Stable Additional Instructions: Patient is to follow-up with his primary care provider. Referrals: [facility] [Provider Group] - 3-5 Days
== END 2021-02-04 08:11 | disposition home or self-care (01) ==
LOC: ED 02:08
DX: F25.9 Schizoaffective disorder, unspecified (principal)

== ENCOUNTER 2021-02-12 03:37 | Emergency (ER) | payer OTHER ==
[2021-02-12 04:11] LABS: Basophils # (Auto) 0.1 K/mm3 (0.0-0.1); Basophils % (Auto) 0.5 % (0.0-1.8); Eosinophils % (Auto) 0.4 % (0.0-4.3); Hematocrit 45.6 % (35.5-45.6); Hemoglobin 15.1 gm/dl (11.8-15.2); Lymphocytes # (Auto) 2.2 K/mm3 (1.2-5.4); Lymphocytes % (Auto) 22.3 % (13.4-35.0); Mean Corpuscular HGB Conc 33 % (32-34); Mean Corpuscular Volume 92 fl (84-94); Monocytes # (Auto) 0.5 K/mm3 (0.0-0.8); Monocytes % (Auto) 5.2 % (0.0-7.3); Platelet Count 314 K/mm3 (140-440); Red Blood Count 4.97 M/mm3 (3.65-5.03); Red Cell Distribution Width 14.2 % (13.2-15.2)
[2021-02-12 04:37] LABS: BUN/Creatinine Ratio 7; Blood Urea Nitrogen 6 mg/dL (9-20); Calcium 10.2 mg/dL (8.4-10.2); Hemolysis Index 8
--- NOTE | 2021-02-12 05:07 | Emergency Department Report ---
ED Psych HPI - General Chief Complaint: Psych Stated Complaint: SUICIDAL Time Seen by Provider: 02/12/21 03:57 Source: patient Mode of arrival: Ambulatory - History of Present Illness Initial Comments: Chief complaint: "I was feeling suicidal." HPI: This is a 26-year-old male history of bipolar disorder and schizoaffective disorder who presents with "feeling suicidal". He does not plan to harm himself or others. He denies hallucinations. No known social stressors. He has not been compliant with his psychiatric medications. Previous medications include trazodone Risperdal and Depakote. MD Complaint: suicidal ideation, feels depressed -: Gradual, days(s) (Several days) Associated Psychiatric Symptoms: depression, suicidal ideation History of same: Yes Quality: constant Improves With: none Worsens With: none Context: not taking psychiatric Associated Symptoms: denies other symptoms Treatments Prior to Arrival: none If Self Harm: admits thoughts of - Related Data Previous Rx's Medication Instructions Recorded Last Taken Type Divalproex Dr [DepaKOTE DR] 250 mg PO BID #60 tablet 06/07/20 Unknown Rx risperiDONE [RisperDAL] 0.5 mg PO BID #60 tablet 06/07/20 Unknown Rx traZODone [Desyrel] 50 mg PO QHS #30 tab 06/07/20 Unknown Rx Allergies Allergy/AdvReac Type Severity Reaction Status Date / Time No Known Allergies Allergy Unverified 06/02/20 13:28 ED Review of Systems ROS: Stated complaint: SUICIDAL Other details as noted in HPI Comment: All other systems reviewed and negative Constitutional: denies: fever, malaise Respiratory: denies: cough, shortness of breath Cardiovascular: denies: chest pain Gastrointestinal: denies: nausea, vomiting Psychiatric: depression, suicidal thoughts. denies: auditory hallucinations, visual hallucinations, homicidal thoughts ED Past Medical Hx - Past Medical History Previous Medical History?: Yes Hx Psychiatric Treatment: Yes (Bipolar schizoaffective disorder) - Surgical History Past Surgical History?: Yes Additional Surgical History: Left leg surgery - Social History Smoking Status: Current Every Day Smoker Substance Use Type: None - Medications Home Medications: Home Medications Medication Instructions Recorded Confirmed Last Taken Type Divalproex Dr [DepaKOTE DR] 250 mg PO BID #60 tablet 06/07/20 02/04/21 Unknown Rx risperiDONE [RisperDAL] 0.5 mg PO BID #60 tablet 06/07/20 02/04/21 Unknown Rx traZODone [Desyrel] 50 mg PO QHS #30 tab 06/07/20 02/04/21 Unknown Rx ED Physical Exam - General Limitations: No Limitations General appearance: alert, in no apparent distress - Head Head exam: Present: atraumatic, normocephalic - Eye Eye exam: Present: normal appearance - ENT ENT exam: Present: mucous membranes moist - Neck Neck exam: Present: normal inspection, full ROM - Respiratory Respiratory exam: Present: normal lung sounds bilaterally. Absent: respiratory distress, wheezes, rales, stridor - Cardiovascular Cardiovascular Exam: Present: regular rate, normal rhythm, normal heart sounds. Absent: systolic murmur, diastolic murmur, rubs, gallop - GI/Abdominal GI/Abdominal exam: Present: soft, normal bowel sounds. Absent: distended, tenderness, guarding, rebound - Rectal Rectal exam: Present: deferred - Extremities Exam Extremities exam: Present: normal inspection - Back Exam Back exam: Present: normal inspection - Neurological Exam Neurological exam: Present: alert, oriented X3 - Psychiatric Psychiatric exam: Present: depressed, flat affect - Skin Skin exam: Present: warm, dry, intact, normal color. Absent: rash ED Course Vital Signs 02/12/21 02/12/21 03:39 08:16 Temperature 98.5 F 97.5 F L Pulse Rate 123 H 54 L Respiratory 18 16 Rate Blood Pressure 119/80 Blood Pressure 109/70 [Right] O2 Sat by Pulse 100 99 Oximetry ED Medical Decision Making - Lab Data Result diagrams: 02/12/21 03:53 02/12/21 03:53 Laboratory Results - last 24 hr 02/12/21 02/12/21 02/12/21 03:53 03:53 03:53 WBC RBC Hgb Hct MCV MCH MCHC RDW Plt Count Lymph % (Auto) [place] % (Auto) Eos % (Auto) Baso % (Auto) Lymph # (Auto) [place] # (Auto) Eos # (Auto) Baso # (Auto) Seg Neutrophils % Seg Neutrophils # Sodium 143 Potassium 4.3 Chloride 101.8 Carbon Dioxide 29 Anion Gap 17 BUN 6 L Creatinine 0.9 Estimated GFR > 60 BUN/Creatinine Ratio 7 Glucose 95 Calcium 10.2 Salicylates < 0.3 L Acetaminophen 5.0 L Plasma/Serum Alcohol 02/12/21 02/12/21 03:53 03:53 WBC 10.0 RBC 4.97 Hgb 15.1 Hct 45.6 MCV 92 MCH 30 MCHC 33 RDW 14.2 Plt Count 314 Lymph % (Auto) 22.3 [place] % (Auto) 5.2 Eos % (Auto) 0.4 Baso % (Auto) 0.5 Lymph # (Auto) 2.2 [place] # (Auto) 0.5 Eos # (Auto) 0.0 Baso # (Auto) 0.1 Seg Neutrophils % 71.6 H Seg Neutrophils # 7.2 Sodium Potassium Chloride Carbon Dioxide Anion Gap BUN Creatinine Estimated GFR BUN/Creatinine Ratio Glucose Calcium Salicylates Acetaminophen Plasma/Serum Alcohol < 0.01 - Medical Decision Making Ms. Rothman 26-year-old male with history of bipolar disorder and schizoaffective disorder who presents with suicidal ideation. Does not have a plan to harm himself or others. He has been noncompliant with psychiatric medications. He denies recreational drug use. Patient is medically clear for psychiatric care. CBC chemistry serum toxicology within normal limits. Mr. Rothman discharged home after mental health assessment with outpatient resources. Critical care attestation.: If time is entered above; I have spent that time in minutes in the direct care of this critically ill patient, excluding procedure time. ED Disposition Clinical Impression: Schizoaffective disorder, Bipolar disorder Disposition: DC-01 TO HOME OR SELFCARE Is pt being admited?: No Does the pt Need Aspirin: No Condition: Stable Instructions: Managing Bipolar Disorder, Managing Schizoaffective Disorder Additional Instructions: Please follow-up in 7 to 14 days with the following psychiatrist. Return to the emergency department should you develop thoughts of hurting yourself or killing yourself or thoughts of harming others. Return for any other new concerning symptoms. OUTPATIENT MENTAL HEALTH RESOURCES [facility], [facility] Corey Lao MD: [address] [place] [address] [place] [address] [facility]: [facility] [address] [place] [address] [place] [id number] [phone] [facility]: [facility]: [address] [address] [facility] [place] [address] [facility] [id number] [facility]: Ezra Saravia MD: [address] [facility] [address] [facility]: [address] [place] [address] [phone] [place] CRISIS AND ACCESS LINE: HOMELESS RESOURCES: [facility] NEED HELP? If you are in need of help or know someone who does, please contact us at [email or web address] call , or come to our offices at [address] [place] [address], Sunday-Sunday beginning at 8AM. [facility] Males only Admission at 7am Sun to Sun Address: [address] [place] [address] Client Engagement [phone] Regular program admission occurs Sunday through Sunday at 7:00 amand operates on a first come, first serve basis.Because we cant anticipate program availability in advance andprogram spots are in high demand, we recommend arri ving early. Space fills up fast! Next steps can include: Assignment to a [facility] program bed Connection to and placement in a partner program, or Referral to a partner agency [facility] [place] Admission at 4:30pm daily Address: [address] [place] [address] [facility] Admission from 8am to 10am Daily No intake until 08/09/20 Address: [address] [place] [address] SUBSTANCE ABUSE PROGRAMS: [facility]: Location: [place], [place] [facility] Address: [address] [place] [address] [facility] Recovery: Address: [address] [place] [address] [facility]: Address: [address] [place] [address] [facility]: Address: [address] [id number] [facility] Address: [address] [place] [address]. Referrals: ROBEL DE LA CRUZ MD [Primary Care Provider] - 3-5 Days
[2021-02-12 08:19] VITALS: BP 109/70
--- NOTE | 2021-02-12 10:14 | Consultation ---
History of Present Illness - Reason for Consult Consult date: 02/12/21 Reason for consult: SI - History of Present Psychiatric Illness Per Nurse Note: HPI: This is a 26-year-old male history of bipolar disorder and schizoaffective disorder who presents with "feeling suicidal". He does not plan to harm himself or others. He denies hallucinations. No known social stressors. He has not been compliant with his psychiatric medications. Previous medications include trazodone Risperdal and Depakote. Mikey Rothman is a 26y/o male who was seen today. He is sleeping but easily arouses. He is calm and cooperative. He is oriented x 3. The patient says he came to the hospital because he "was feeling bad." He says he's been off his meds, but then says he "never started them." The patient says he didn't have the money. The patient says he has a history of biplar and schizophrenia. The patient says he came in because he was "feeling suicidal." When asked was he suicidal at present, he states "not right now." He denies hallucinations of any kind. He says he is homeless. The patient says his parents are and he can't live with his siblings. He denies any illicit drug use, but records show the patient has a history of substance abuse. He denies alcohol or nicotine use. PAST PSYCHIATRIC HISTORY Diagnoses: schizophrenia and bipolar Suicide attempts or Self-harm behavior: none reported Prior psychiatric hospitalizations: yes Substance Abuse history: multiple, psychodelics, cocaine, marijuana Previous psychiatric medications tried: non complaint Outpatient treatment: none reported PAST MEDICAL HISTORY: none reported Family Psychiatric History: None reported or documented SOCIAL HISTORY Marital Status: single Living Arrangements: homeless Employment Status: unemployed Access to guns/weapons: none reported Education: High school drop out History of Abuse: none reported Legal History: yes REVIEW OF SYSTEMS Constitutional: Negative for weight loss ENT: Negative for stridor Respiratory: Negative for cough or hemoptysis All other systems reviewed and are negative MENTAL STATUS EXAMINATION General Appearance and Behavior: Age appropriate, fair hygiene, wearing appropriate clothes, lying in bed, good eye contact, cooperative questioning. Cooperation: Participating Psychomotor Behavior: unremarkable and within normal limits Mood: feeling bad Affect and affective range: Euthymic Thought Process: goal directed Thought Content: None Speech: Normal volume, Regular rate and rhythm, Suicidal Ideation: Denies SI Homicidal Ideation: Denies HI Hallucinations: Denies Delusions: None elicited Impulse Control: Limited Insight and Judgment: Limited insight and judgment Memory: Short term memory intact Attention: Undivided attention impaired Orientation: Alert, oriented Assessment and Plan (1) Mood Disorder, Unspecified Treatment Plan No medications prescribed at this time Risks, benefits and alternatives of medications discussed with the patient, questions answered and consent obtained from patient. PSYCHOTHERAPY: Supportive psychotherapy provided MEDICAL: Per primary team DELIRIUM PRECAUTIONS: Please re-orient patient frequently, keep lights on during the day, and minimize benzodiazepines and opiates as these medications could worsen patient's confusion. PRODUCT SUPPORT TECHNICIAN: defer to primary DISPOSITION: Do not recommend acute inpatient psychiatric hospitalization at this time. The patient's condition can be managed on an outpatient basis. He understands that he is to seek immediate assistance including the crisis hotline, 911/ER. The health insurance assessor is to further discuss and document the safety plan The patient is to abstain from all illicit drug use The health insurance assessor is to give him resources for outpatient psych, CBT, med management, med assistance and drug rehab, and [facility] resources He is to follow up with outpatient psych in 7 to 14 days upon discharge Will sign off. Thank you for the consult. Please contact with any questions and/or concerns. Case staffed with Dr. Gamboa Medications and Allergies Allergies Allergy/AdvReac Type Severity Reaction Status Date / Time No Known Allergies Allergy Unverified 06/02/20 13:28 Home Medications Medication Instructions Recorded Confirmed Last Taken Type Divalproex [Aura ALLISON] 250 mg PO BID #60 tablet 06/07/20 02/04/21 Unknown Rx risperiDONE [RisperDAL] 0.5 mg PO BID #60 tablet 06/07/20 02/04/21 Unknown Rx traZODone [Desyrel] 50 mg PO QHS #30 tab 06/07/20 02/04/21 Unknown Rx Mental Status Exam - Vital signs Last Vital Signs Temp 97.5 F L 02/12/21 08:16 Pulse 54 L 02/12/21 08:16 Resp 16 02/12/21 08:16 BP 109/70 02/12/21 08:16 Pulse Ox 99 02/12/21 08:16 Results Result Diagrams: 02/12/21 03:53 02/12/21 03:53 Abnormal lab results 02/12/21 02/12/21 02/12/21 Range/Units 03:53 03:53 03:53 Seg Neutrophils % (40.0-70.0) % BUN 6 L (9-20) mg/dL Salicylates < 0.3 L (2.8-20.0) mg/dL Acetaminophen 5.0 L (10.0-30.0) ug/mL 02/12/21 Range/Units 03:53 Seg Neutrophils % 71.6 H (40.0-70.0) % BUN (9-20) mg/dL Salicylates (2.8-20.0) mg/dL Acetaminophen (10.0-30.0) ug/mL All other labs normal.
--- NOTE | 2021-02-12 10:23 | Event Note ---
Date: 02/12/21 26-year-old male with history of bipolar disorder and schizophrenia who presented with suicidal ideation. He was seen by my colleague and medically cleared for further psychiatric evaluation and and placement if necessary. Vital signs are stable. Currently awaiting psychiatric recommendations.
--- NOTE | 2021-02-12 12:09 | Event Note ---
Date: 02/12/21 Patient was seen by the psychiatry/mental health team and indicated that he was no longer suicidal. The team recommends discharge with outpatient follow-up. I spoke with the patient and he denies SI/HI or auditory/visual hallucinations. He also denies any urinary complaints and therefore I have canceled the urinalysis. Outpatient resources will be provided.
== END 2021-02-12 13:00 | disposition home or self-care (01) ==
LOC: ED 03:37
DX: F20.9 Schizophrenia, unspecified (principal); Z20.822 Contact with and (suspected) exposure to COVID-19; F31.9 Bipolar disorder, unspecified; F17.200 Nicotine dependence, unspecified, uncomplicated; Z98.890 Other specified postprocedural states; Z79.899 Other long term (current) drug therapy
CPT/HCPCS: 36415; 80048; 85025; 99284; U0003; 80320; G0480

== ENCOUNTER 2021-10-26 13:32 | Emergency (ER) | payer OTHER ==
[2021-10-26 13:34] VITALS: BP 122/82
== END 2021-10-26 17:40 | disposition left against medical advice (07) ==
LOC: ED 13:32
DX: R10.9 Unspecified abdominal pain (principal); Z53.21 Procedure and treatment not carried out due to patient leaving prior to being seen by health care provider